=== PATIENT | male | born 1960 | race Caucasian/White ===

== ENCOUNTER 2021-07-02 20:22 | Emergency (ER) | payer OTHER | END 2021-07-02 21:31 | disposition home or self-care (01) | LOC: FER 20:22 | DX: S63.253A Unspecified dislocation of left middle finger, initial encounter (principal); W55.22XA Struck by cow, initial encounter; Y92.009 Unspecified place in unspecified non-institutional (private) residence as the place of occurrence of the external cause | CPT/HCPCS: 73120; 73130 ==